=== PATIENT | male | born 1960 | race American Indian/Alaskan Native ===

== ENCOUNTER 2021-08-27 11:01 | Outpatient (CLI) | payer OTHER ==
--- NOTE | 2021-08-27 13:58 | XRay Report ---
Lumbar spine 3 views INDICATION: Back pain FINDINGS: Alignment appears normal. No compression fractures seen. No subluxation. Facets are well al igned throughout. Sacrum appears normal. IMPRESSION: No acute findings. Signer Name: Bryan Crews MD Signed: 08/27/2021 1:54 PM Workstation Name: [email or web address]
--- NOTE | 2021-08-27 14:19 | XRay Report ---
Right knee 2 views INDICATION: Knee pain FINDINGS: Alignment appears normal. Patellofemoral degenerative change with joint space narrowing. No acute fracture or dislocation. Signer Name: Bryan Crews MD Signed: 08/27/2021 2:15 PM Workstation Name: [email or web address] (formerly [employer])
--- NOTE | 2021-08-27 15:07 | XRay Report ---
BILATERAL FOOT 6 VIEW(S) INDICATION / CLINICAL INFORMATION: BILATERAL FOOT PAIN disability. COMPARISON: None available. FINDINGS: BONES / JOINT(S): No acute fracture or subluxation. 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 SOFT TISSUES: Small bilateral soft tissue bunions along the medial aspect of the 1st MTP joint. ADDITIONAL FINDINGS: None. IMPRESSION: 1. 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 Signer Name: Azar Shields MD Signed: 08/27/2021 3:02 PM Workstation Name: [email or web address]
== END 2021-08-27 11:02 | disposition home or self-care (01) ==
LOC: XRAY 11:01
PROVIDERS: ATTEND Internal Medicine
DX: M20.12 Hallux valgus (acquired), left foot (principal); M20.11 Hallux valgus (acquired), right foot; M19.072 Primary osteoarthritis, left ankle and foot; M19.071 Primary osteoarthritis, right ankle and foot; M17.11 Unilateral primary osteoarthritis, right knee
CPT/HCPCS: 72100